=== PATIENT | male | born 1950 | race Caucasian/White ===

== ENCOUNTER 2023-06-17 00:31 | Emergency (ER) | payer MEDICARE, SELFPAY ==
[2023-06-17 00:32] VITALS: BP 169/74; PULSE 81; TEMP 36.8; O2SAT 100; BMI 20.1
--- NOTE | 2023-06-17 00:49 | ED_ITS ---
HPI - Abdominal Pain General Chief Complaint: Abdominal Pain Stated Complaint: OTHER Time Seen by Provider: 06/17/23 00:31 Source: patient Mode of arrival: ambulance History of Present Illness HPI narrative: 73-year-old male presents from [facility] for abdominal pain. He was diagnosed with pancreatic cancer and is scheduled to start chemotherapy. He had been on pain medications but there was apparently an inadvertent issue and he could not get more at the [facility] so he was sent here for pain control. The patient states it will be straightened out in the morning but he just wanted to get something for pain now. The staff at the [facility] did not have access to any more pain medication for him tonight. No new symptoms. Related Data Home Medications ?Medication ?Instructions ?Recorded ?Confirmed fluvoxamine 100 mg tablet 100 mg PO BEDTIME 06/17/23 06/17/23 glipizide 10 mg tablet 10 mg PO DAILY 06/17/23 06/17/23 insulin glargine 100 unit/mL (3 28 unit subcut DAILY 06/17/23 06/17/23 mL) subcutaneous pen (Lantus Solostar U-100 Insulin) methylphenidate HCl 10 mg tablet 10 mg PO QID 06/17/23 06/17/23 oxycodone 10 mg tablet 10 mg PO Q6H 06/17/23 06/17/23 rosuvastatin 20 mg tablet 10 mg PO BEDTIME 06/17/23 06/17/23 trazodone 100 mg tablet 100 mg PO BEDTIME 06/17/23 06/17/23 Allergies Allergy/AdvReac Type Severity Reaction Status Date / Time codeine Allergy Verified 06/17/23 00:37 iodine Allergy Verified 06/17/23 00:37 Penicillins Allergy Verified 06/17/23 00:37 Review of Systems ROS Narrative A ten point review of systems is negative except as noted above. Exam Narrative Exam Narrative: Nurses note and vital signs reviewed and patient is not hypoxic. General: The patient appears well and in no apparent distress. Patient is resting comfortably on cart. Skin: Warm, dry, no pallor noted. There is no rash noted. Head: Normocephalic, atraumatic Eye: Normal conjunctiva, no drainage Ears, Nose, Mouth, and Throat: oral mucosa is moist. Nares patent. Cardiovascular: Regular Rate and Rhythm Respiratory: Patient is in no distress, no accessory muscle use, lungs are clear to auscultation, no wheezing, rales or rhonchi Back: non-tender GI: Minimal tenderness, no distention Musculoskeletal: The patient has no evidence of calf tenderness, no pitting edema, symmetrical pulses noted bilaterally Neurological: A&O, normal speech Psychiatric: Cooperative Constitutional Vital Signs, click to edit/add: Last Vital Signs Temp 98.2 F 06/17/23 00:32 Pulse 81 06/17/23 00:32 Resp 18 06/17/23 00:32 BP 169/74 H 06/17/23 00:32 Pulse Ox 100 06/17/23 00:32 O2 Del Method Room Air 06/17/23 00:32 Course Vital Signs Vital signs: Vital Signs Temperature 98.2 F 06/17/23 00:32 Pulse Rate 81 06/17/23 00:32 Respiratory Rate 18 06/17/23 00:32 Blood Pressure 169/74 H 06/17/23 00:32 Pulse Oximetry 100 06/17/23 00:32 Oxygen Delivery Method Room Air 06/17/23 00:32 Temperature 98.2 F 06/17/23 00:32 Pulse Rate 81 06/17/23 00:32 Respiratory Rate 18 06/17/23 00:32 Blood Pressure 169/74 H 06/17/23 00:32 Pulse Oximetry 100 06/17/23 00:32 Oxygen Delivery Method Room Air 06/17/23 00:32 MDM - Abdominal Pain MDM Narrative Medical decision making narrative: He was given the option of 10 mg of oral oxycodone which is what he had been on or IM morphine and he elects to take the IM morphine. He is able to be discharged back to [facility]. Differential Diagnosis Differential diagnosis: Likely abdominal pain and other (Chronic abdominal pain, pancreatic cancer) Discharge Plan Discharge Stand Alone Forms: Portal Instructions Chief Complaint: Abdominal Pain Clinical Impression: Pancreatic cancer, Abdominal pain Patient Disposition: Home, Self-Care Time of Disposition Decision: 00:48 Condition: Good Mode of Transportation: Private Vehicle Prescriptions / Home Meds: No Action fluvoxamine 100 mg tablet 100 mg PO BEDTIME glipizide 10 mg tablet 10 mg PO DAILY methylphenidate HCl 10 mg tablet 10 mg PO QID rosuvastatin 20 mg tablet 10 mg PO BEDTIME trazodone 100 mg tablet 100 mg PO BEDTIME oxycodone 10 mg tablet 10 mg PO Q6H insulin glargine [Lantus Solostar U-100 Insulin] 100 unit/mL (3 mL) insulin pen 28 unit subcut DAILY Print Language: Slovenian Instructions: Pancreatic Cancer (DC), Acute Abdominal Pain (ED)
[2023-06-17] MEDS: MORPHINE SULFATE 4 MG/ML VIAL 10 MG IM (01:13)
== END 2023-06-17 02:20 | disposition home or self-care (01) ==
PROVIDERS: Emergency Provider Emergency Medicine; Family Provider Family Medicine; PCP Family Medicine
DX: R10.9 Unspecified abdominal pain (principal); C25.9 Malignant neoplasm of pancreas, unspecified; Z79.899 Other long term (current) drug therapy; Z79.4 Long term (current) use of insulin
CPT/HCPCS: 96372; 99284

== ENCOUNTER 2023-07-28 04:16 | Emergency (ER) | payer MEDICARE, SELFPAY ==
[2023-07-28] VITALS (61 sets, daily range): BP systolic 62–119; BP diastolic 40–72; PULSE 91–114; TEMP 36.2; O2SAT 84–99; BMI 22.2
--- NOTE | 2023-07-28 04:13 | CT_ITS ---
The [address] [address] Patient Name: ANUSHA DANIELLE MRN: [id number] date: 1950 Sex: M Assigned Patient Location: ED.MAIN Current Patient Location: Accession/Order Number: [id number] Exam Date: 07/28/2023 06:20 Report Date: 07/28/2023 06:59 At the request of: NARENDRA LIRA Procedure: CT head/brain wo con INDICATION: 73 years old; Male. Found down. TECHNIQUE: CT Head (ax/cor/sag reformats). Ionizing radiation dose reduced via iterative reconstruction/FBP blend and body size kV/mA adjustment. Comparison: None. FINDINGS: POSTOPERATIVE CHANGES: None. BRAIN PARENCHYMA: No intraparenchymal or extra-axial hemorrhage. No mass effect. No midline shift or herniation. There is an old lacunar infarction in the lentiform nucleus on the right and in the thalamus on the left.. Nonspecific patchy low-density in the white matter without mass effect. VENTRICLES/EXTRA-AXIAL SPACES: Normal for patient's age. SINUSES/MASTOIDS: Sinuses are clear although the maxillary sinuses are not completely included in this routine CT of the head. Mastoids and middle ears are clear. MSK: No displaced or depressed calvarial fracture. OTHER: No hyperdense intraluminal thrombus. Vascular calcifications are present. CT/CT head/brain wo con IMPRESSION: 1. No acute intracranial abnormality. No hemorrhage or mass effect. 2. Old lacunar infarctions and nonspecific white matter changes. If there is concern for infarction, then MRI including diffusion imaging would be more sensitive. 3. Vascular calcifications. Electronically authenticated by: ANUSHA POSADA Date: 07/28/2023 06:59
--- NOTE | 2023-07-28 04:13 | ECG_ITS ---
The [facility] Test Date: 2023-07-28 Pat Name: ANUSHA DANIELLE Department: Room: - Gender: Male Oracle Dba: : 1950 Requested By: Order Number: [id number] Reading MD: JACKI LERNER Measurements Intervals [place] Rate: 111 P: 97 NE: 138 QRS: -13 QRSD: 98 T: 79 QT: 322 QTc: 387 Interpretive Statements 1120 Sinus tachycardia 2440 Incomplete right bundle branch block Inferolateral ST depression, can't exclude myocardial ischemia 9150 abnormal ECG No previous ECG available for comparison Electronically Signed On 07-28-2023 21:53:08 EDT by JACKI LERNER
--- NOTE | 2023-07-28 04:13 | CT_ITS ---
[address] [address] Patient Name: ANUSHA DANIELLE MRN: [id number] date: 1950 Sex: M Assigned Patient Location: ER Current Patient Location: ER Accession/Order Number: [id number] Exam Date: 07/28/2023 06:20 Report Date: 07/28/2023 06:59 At the request of: NARENDRA LIRA Procedure: CT cervical spine wo con EXAMINATION: CT cervical spine wo con HISTORY: fall COMPARISON: No relevant comparison available. TECHNIQUE: Axial, Coronal, and Sagittal images were created without IV contrast. Dose reduction techniques were achieved by using automated exposure control and/or adjustment of mA and/or kV according to patient size and/or use of iterative reconstruction technique. FINDINGS: VERTEBRAL BODIES: No fracture, spondylolisthesis, bone lesion. FACET JOINTS: Multilevel moderate degenerative facet arthropathy resulting in bone encroachment on the neural foramen. No disruption or abnormal widening. DISCS: Mild narrowing C4 on 5. Moderate-marked narrowing C5-C6. Multilevel mild/moderate disc bulging and uncovertebral joint spurring resulting in foraminal stenosis. Suspect moderate-marked central canal narrowing C5-C6. CENTRAL CANAL: No evidence of hemorrhage. PARASPINAL AREA: No visible mass. CT/CT cervical spine wo con IMPRESSION: 1. No appreciable acute abnormality. 2. Multilevel degenerative changes. Electronically authenticated by: MARILU MOBLEY Date: 07/28/2023 06:59
[2023-07-28 04:22] LABS: Glucometer 136 mg/dL (74-106)
--- NOTE | 2023-07-28 04:23 | ED.SOB1 ---
HPI - SOB/Dyspnea General Chief Complaint: Shortness of Breath/Dyspnea Stated Complaint: chest pain Time Seen by Provider: 07/28/23 04:23 Source: caregiver Source comment: diane jones Mode of arrival: ambulance Limitations: no limitations History of Present Illness HPI Narrative: retirement patient with past history of pancreatic CA. Found on the floor of the retirement. Arrives to the ED very pale complaining of feeling short of breath. Also complains of neck pain. Anxious stating he can't breathe MD elicited complaint: shortness of breath Related Data Home Medications ?Medication ?Instructions ?Recorded ?Confirmed fluvoxamine 100 mg tablet 100 mg PO BEDTIME 06/17/23 07/28/23 glipizide 10 mg tablet 10 mg PO DAILY 06/17/23 07/28/23 insulin glargine 100 unit/mL (3 28 unit subcut DAILY 06/17/23 07/28/23 mL) subcutaneous pen (Lantus Solostar U-100 Insulin) methylphenidate HCl 10 mg tablet 10 mg PO BID 06/17/23 07/28/23 trazodone 100 mg tablet 100 mg PO BEDTIME 06/17/23 07/28/23 GI COCKTAIL 60 ml PO TID 07/28/23 07/28/23 atorvastatin 40 mg tablet 40 mg PO QPM 07/28/23 07/28/23 furosemide 20 mg tablet 20 mg PO DAILY 07/28/23 07/28/23 hydromorphone 2 mg tablet 2 mg PO Q8H 07/28/23 07/28/23 (Dilaudid) insulin aspart U-100 100 unit/mL 1 sliding scale dose subcut 07/28/23 07/28/23 (3 mL) subcutaneous pen (Novolog USEASDIRECTD FlexPen U-100 Insulin aspart) insulin glargine 100 unit/mL 10 unit subcut QDAY 07/28/23 07/28/23 subcutaneous solution (Lantus U-100 Insulin) morphine 15 mg tablet,extended 15 mg PO Q12H 07/28/23 07/28/23 release ondansetron 4 mg disintegrating 4 mg PO Q6H PRN nausea and vomiting 07/28/23 07/28/23 tablet pantoprazole 40 mg granules 40 mg PO QDAY 07/28/23 07/28/23 delayed-release for susp in packet (Protonix) sennosides 8.6 mg tablet (Olga-lobo) 8.6 mg PO BID 07/28/23 07/28/23 Allergies Allergy/AdvReac Type Severity Reaction Status Date / Time codeine Allergy Verified 07/28/23 04:18 iodine Allergy Verified 07/28/23 04:18 Penicillins Allergy Verified 07/28/23 04:18 Review of Systems ROS Status of ROS 10 or more systems reviewed and unremarkable except as noted in history and below Exam Constitutional Vital Signs, click to edit/add: Last Vital Signs Temp 97.1 F L 07/28/23 04:10 Pulse 111 H 07/28/23 05:37 Resp 12 07/28/23 05:37 BP 102/70 07/28/23 05:37 Pulse Ox 97 07/28/23 05:37 O2 Del Method Nonrebreather 07/28/23 05:37 O2 Flow Rate 5 07/28/23 04:16 Common normals: oriented x3 and alert General appearance: diaphoretic and other (pale) HENMT Common normals: normocephalic and head/scalp atraumatic Eye Common normals: EOMs intact bilaterally and conjunctivae normal Respiratory Common normals: normal respiratory effort, no retractions, no use of accessory muscles and clear to auscultation bilaterally Cardio Common normals: S1 normal heart sound and S2 normal heart sound Rate: tachycardic GI Common normals: Normal to inspection, nondistended, normoactive bowel sounds present, soft to palpation and non-tender Extremity Common normals: normal to inspection and full ROM Neuro Common normals: oriented x3, CN's II-XII intact bilaterally, moves all extremities, no focal motor deficits and no sensory deficits noted Psych Mood and affect: anxious Course Vital Signs Vital signs: Vital Signs Temperature 97.1 F L 07/28/23 04:10 Pulse Rate 112 H 07/28/23 04:10 Respiratory Rate 18 07/28/23 04:10 Blood Pressure 112/58 07/28/23 04:10 Pulse Oximetry 99 07/28/23 04:10 Oxygen Delivery Method Nonrebreather 07/28/23 04:10 Oxygen Delivery Flow Rate 15 07/28/23 04:10 Temperature 97.1 F L 07/28/23 04:10 Pulse Rate 111 H 07/28/23 05:37 Respiratory Rate 12 05/12/24 05:37 Blood Pressure 102/70 07/28/23 05:37 Pulse Oximetry 97 07/28/23 05:37 Oxygen Delivery Method Nonrebreather 07/28/23 05:37 Oxygen Delivery Flow Rate 5 07/28/23 04:16 MDM - SOB/Dyspnea MDM Narrative Medical decision making narrative: NHP with known history of pancreatic Cancer. Found on the floor of the home. Brought to the ER by Squad. complaining of shortness of breath. He was panicking complaining he could not breath. His color very pale. He improved with NRB mask. Labs demonstrated anemia with Hgb 8.5. D-dimer elevated. He also complained of neck pain. Has a history of neck pain but because he was found on the floor . CT C-spine, CT brain ordered. CTA chest ordered after elevated d-dimer. Patient found to have lactic acidosis and also hypotensive and IV hydration ordered. Vanco and Clindamycin ordered for [employer] cov. Patient has PCN allergy. Care transferred to Dr barrientos at change of shift pending results of diagnostic studies and remaining labs Lab Data Labs: Lab Results 07/28/23 07/28/23 Range/Units 04:13 04:15 WBC 13.6 H (4.0-11.0) 10^3/uL RBC 3.04 L (4.70-6.10) 10^6/uL Hgb 8.5 L (14.0-18.0) g/dL Hct 27.8 L (42.0-54.0) % MCV 91.4 (80.0-94.0) fL MCH 28.0 (25.9-34.0) pg MCHC 30.6 (29.9-35.2) g/dL RDW 13.5 (11.0-15.0) % Plt Count 262 (150-450) 10^3/uL MPV 9.5 (9.5-13.5) fL Seg Neuts % (Manual) 51.0 Band Neutrophils % 4.0 (0-5) % Lymphocytes % (Manual) 39.0 (20.5-60.0) % Atypical Lymphs % (Man) 2.0 % Monocytes % (Manual) 1.0 L (1.7-12.0) % Eosinophils % (Manual) 3.0 (0.9-7.0) % Basophils % (Manual) 0.0 L (0.2-2.0) % Neutrophils # (Manual) 6.93 H (1.4-6.5) 10^3/uL Band Neutrophils # 0.5 H (0.0-0.3) 10^3/uL Lymphocytes # (Manual) 5.30 H (1.20-3.80) 10^3/uL Abs Atypical Lymphs Man 0.27 Monocytes # (Manual) 0.13 L (0.30-0.80) 10^3/uL Eosinophils # (Manual) 0.40 (0.00-0.70) 10^3/uL Basophils # (Manual) 0.00 (0.00-0.10) 10^3/uL D-Dimer 18.28 H* (<=0.59) mg/L FEU Sodium 142 (136-145) mmol/L Potassium 3.7 (3.5-5.1) mmol/L Chloride 104 (98-107) mmol/L Carbon Dioxide 26.2 (21.0-32.0) mmol/L Anion Gap 15.5 BUN 27.0 H (7.0-18.0) mg/dL Creatinine 1.33 H (0.70-1.30) mg/dL Est GFR ( Amer) >60 (>=60) Est GFR (Non-Af Amer) 53 L (>=60) BUN/Creatinine Ratio 20.3 Glucose 221 H (74-106) mg/dL Lactate 8.8 H* (0.4-2.0) mmol/L Calcium 8.6 (8.5-10.1) mg/dL Total Bilirubin 0.5 (0.2-1.0) mg/dL AST 32 (15-37) U/L ALT 26 (16-63) U/L Alkaline Phosphatase 154 H (46-116) U/L Troponin I High Sens 52.2 (4.0-76.1) pg/mL NT-Pro-B Natriuret Pep 487.0 (<=900.0) pg/mL Total Protein 5.6 L (6.4-8.2) g/dL Albumin 2.2 L (3.4-5.0) g/dL Globulin 3.4 g/dL Albumin/Globulin Ratio 0.6 Procalcitonin 0.17 (0.00-0.50) ng/mL POC Glucose 136 H (74-106) mg/dL Discharge Plan Discharge Patient Disposition: Still a Patient
[2023-07-28 04:32] LABS: Hematocrit 27.8 % (42.0-54.0); Hemoglobin 8.5 g/dL (14.0-18.0); Mean Corpuscular HGB Conc 30.6 g/dL (29.9-35.2); Mean Corpuscular Volume 91.4 fL (80.0-94.0); Mean Platelet Volume 9.5 fL (9.5-13.5); Platelet Count 262 10^3/uL (150-450); Red Blood Count 3.04 10^6/uL (4.70-6.10); Red Cell Distribution Width 13.5 % (11.0-15.0); White Blood Count 13.6 10^3/uL (4.0-11.0)
--- NOTE | 2023-07-28 04:40 | PC.NURSE ---
Pt arrived via EMS after being found on floor at [facility]. He was having chest pain and SOB. EMS phoned report stating patient was on 6L O2 per NC and was only at 88%, and was hypotensive. When he arrived, he was anxious, yelling out that he could not breathe, he was diaphoretic and skin was pale and greying. RT was in the room and switched patient over to nonrebreather mask which brought patient up to 95% and he was able to calm his breathing and he felt much better. He was able to have a conversation at this point, states that he gets chemo once every other week through his port, it has been making him feel increasingly SOB, but tonight is the worst it has been. he c/o neck pain that he says is not from his fall, it has been ongoing from arthritis. He states that yesterday at the oncologist office his platelets were low and they put a platelet patch on him which is when his SOB increased He has 4+ pitting edema of BLEs, he states this is not new and is better tonight than normal
[2023-07-28] MEDS: 0.9 % SODIUM CHLORIDE 1,000 ML 999 ML IV ×2 (04:46→05:26)
[2023-07-28 05:00] LABS: Lactate/Lactic Acid 8.8 mmol/L (0.4-2.0)
[2023-07-28 05:04] LABS: Alanine Aminotransferase 26 U/L (16-63); Albumin Globulin Ratio 0.6; Albumin Level 2.2 g/dL (3.4-5.0); Alkaline Phosphatase 154 U/L (46-116); Anion Gap 15.5; Aspartate Amino Transferase 32 U/L (15-37); BUN Creatinine Ratio 20.3; Bilirubin Total 0.5 mg/dL (0.2-1.0); Calcium 8.6 mg/dL (8.5-10.1); Carbon Dioxide 26.2 mmol/L (21.0-32.0); Chloride 104 mmol/L (98-107); Estimated GFR (African America >60 (>=60); Estimated GFR (Non-African Ame 53 (>=60); Globulin 3.4 g/dL; Glucose 221 mg/dL (74-106); Potassium 3.7 mmol/L (3.5-5.1); Sodium 142 mmol/L (136-145); Total Protein 5.6 g/dL (6.4-8.2); Troponin I High Sensitivity 52.2 pg/mL (4.0-76.1)
[2023-07-28 05:13] LABS: D Dimer 18.28 mg/L FEU (<=0.59)
--- NOTE | 2023-07-28 05:13 | CT_ITS ---
[address] [address] Patient Name: ANUSHA DANIELLE MRN: [id number] date: 1950 Sex: M Assigned Patient Location: ED.MAIN Current Patient Location: ED.MAIN Accession/Order Number: [id number] Exam Date: 07/28/2023 05:29 Report Date: 07/28/2023 07:10 At the request of: NARENDRA LIRA Procedure: CT angio chest EXAMINATION: CT angio chest HISTORY: short of breath , trauma, fall COMPARISON: No relevant comparison available. TECHNIQUE: Multi-planar CT images were created with IV contrast. Axial, Coronal, and Sagittal images. Dose reduction techniques were achieved by using automated exposure control and/or adjustment of mA and/or kV according to patient size and/or use of iterative reconstruction technique. 3-D reconstruction was performed on a separate workstation. FINDINGS: VASCULATURE: Large pulmonary embolism burden bilaterally with nonocclusive thrombus in main pulmonary arteries extending into all lobar arteries bilaterally. LUNGS: Mild atelectasis versus infiltrates within posterior lung bases. A few scattered areas of mild opacity; pulmonary contusion versus nodules versus infiltrates. PLEURA: No mass, effusion, or pneumothorax. LEAH: No mass or adenopathy. MEDIASTINUM: No mass or adenopathy. CARDIAC: Moderate leftward shift of interventricular septum. No pericardial effusion. Mild atherosclerotic coronary artery disease. AORTA: No aneurysm or dissection. CHEST WALL: No mass or axillary adenopathy. Left chest wall Port-A-Cath. BONES: No bone lesion or fracture. LIMITED ABDOMEN: No suspicious findings. Limited images of the upper abdomen. OTHER: Negative. CT/CT angio chest IMPRESSION: 1. Large, nonocclusive bilateral pulmonary embolism burden with moderate heart strain. 2. Multifocal mild pulmonary atelectasis versus infiltrates versus contusions. No convincing infarctions. Findings discussed with Dr. Washington via telephone at 7:04 AM. Electronically authenticated by: MARILU MOBLEY Date: 07/28/2023 07:10
[2023-07-28] MEDS: METHYLPREDNISOLONE SOD SUCC PF 125 MG/2 ML VIAL IVP (05:27)
[2023-07-28] MEDS: DIPHENHYDRAMINE HCL 50 MG/ML (1ML) VIAL IV (05:27)
[2023-07-28 05:32] LABS: Atypical Lymphocytes Abs Man 0.27; Band Neutrophils Absolute 0.5 10^3/uL (0.0-0.3); Monocytes Absolute Manual 0.13 10^3/uL (0.30-0.80); Segmented Neut Absolute Manual 6.93 10^3/uL (1.4-6.5)
[2023-07-28 05:51] LABS: PROCALCITONIN 0.17 ng/mL (0.00-0.50)
[2023-07-28] MEDS: CLINDAMYCIN PHOSPHATE/D5W 900 MG/50 ML PIGGYBACK 100 MG IV (06:53)
[2023-07-28] MEDS: VANCOMYCIN HCL 1,000 MG in 0.9 % SODIUM CHLORIDE 250 ML 250 MG IV (07:21)
[2023-07-28] MEDS: HEPARIN SODIUM (PORCINE) 5,000 UNIT/ML VIAL 3750 UNIT IV (07:40)
[2023-07-28] MEDS: HEPARIN SODIUM,PORCINE/D5W 25,000 UNIT/500 ML IV.SOLN 25 UNIT IV (07:42)
[2023-07-28 08:27] LABS: INR 1.17; Prothrombin Time 12.2 sec (9.0-11.6)
[2023-07-28 08:30] LABS: Partial Thromboplastin Time 112.9 sec (22.3-36.2)
--- NOTE | 2023-07-28 08:31 | ED.SOB1 ---
HPI - SOB/Dyspnea General Chief Complaint: Shortness of Breath/Dyspnea Stated Complaint: chest pain Time Seen by Provider: 07/28/23 04:23 Source: caregiver Source comment: diane jones Mode of arrival: ambulance Limitations: no limitations History of Present Illness HPI Narrative: The patient was initially seen by Dr. Aguilar and signed out to me after discussing the case with him thoroughly. Please see his full history and physical exam. Related Data Home Medications ?Medication ?Instructions ?Recorded ?Confirmed fluvoxamine 100 mg tablet 100 mg PO BEDTIME 06/17/23 07/28/23 glipizide 10 mg tablet 10 mg PO DAILY 06/17/23 07/28/23 insulin glargine 100 unit/mL (3 28 unit subcut DAILY 06/17/23 07/28/23 mL) subcutaneous pen (Lantus Solostar U-100 Insulin) methylphenidate HCl 10 mg tablet 10 mg PO BID 06/17/23 07/28/23 trazodone 100 mg tablet 100 mg PO BEDTIME 06/17/23 07/28/23 GI COCKTAIL 60 ml PO TID 07/28/23 07/28/23 atorvastatin 40 mg tablet 40 mg PO QPM 07/28/23 07/28/23 furosemide 20 mg tablet 20 mg PO DAILY 07/28/23 07/28/23 hydromorphone 2 mg tablet 2 mg PO Q8H 07/28/23 07/28/23 (Dilaudid) insulin aspart U-100 100 unit/mL 1 sliding scale dose subcut 07/28/23 07/28/23 (3 mL) subcutaneous pen (Novolog USEASDIRECTD FlexPen U-100 Insulin aspart) insulin glargine 100 unit/mL 10 unit subcut QDAY 07/28/23 07/28/23 subcutaneous solution (Lantus U-100 Insulin) morphine 15 mg tablet,extended 15 mg PO Q12H 07/28/23 07/28/23 release ondansetron 4 mg disintegrating 4 mg PO Q6H PRN nausea and vomiting 07/28/23 07/28/23 tablet pantoprazole 40 mg granules 40 mg PO QDAY 07/28/23 07/28/23 delayed-release for susp in packet (Protonix) sennosides 8.6 mg tablet (Olga-lobo) 8.6 mg PO BID 07/28/23 07/28/23 Allergies Allergy/AdvReac Type Severity Reaction Status Date / Time codeine Allergy Verified 07/28/23 04:18 iodine Allergy Verified 07/28/23 04:18 Penicillins Allergy Verified 07/28/23 04:18 Exam Constitutional Vital Signs, click to edit/add: Last Vital Signs Temp 97.1 F L 07/28/23 04:10 Pulse 96 H 07/28/23 08:00 Resp 13 07/28/23 08:00 BP 80/40 L 07/28/23 08:01 Pulse Ox 94 L 07/28/23 08:00 O2 Del Method Nonrebreather 07/28/23 06:56 O2 Flow Rate 4 07/28/23 07:47 Course Vital Signs Vital signs: Vital Signs Temperature 97.1 F L 07/28/23 04:10 Pulse Rate 112 H 07/28/23 04:10 Respiratory Rate 18 07/28/23 04:10 Blood Pressure 112/58 07/28/23 04:10 Pulse Oximetry 99 07/28/23 04:10 Oxygen Delivery Method Nonrebreather 07/28/23 04:10 Oxygen Delivery Flow Rate 15 07/28/23 04:10 Temperature 97.1 F L 07/28/23 04:10 Pulse Rate 96 H 07/28/23 08:00 Respiratory Rate 13 07/28/23 08:00 Blood Pressure 80/40 L 07/28/23 08:01 Pulse Oximetry 94 L 07/28/23 08:00 Oxygen Delivery Method Nonrebreather 07/28/23 06:56 Oxygen Delivery Flow Rate 4 07/28/23 07:47 MDM - SOB/Dyspnea MDM Narrative Medical decision making narrative: CTA shows bilateral nonocclusive pulmonary emboli with heart strain. Findings are discussed with the patient and his and they are requesting transfer to [facility]. I have spoken to Dr. Daniel bustillos who accepts the patient and the patient will be transported by air ambulance. He has been started on a heparin drip and was also placed on Levophed because of low blood pressure. The seriousness of the condition was discussed thoroughly with the patient and his . As of now he is still a full code. Differential Diagnosis Differential diagnosis: Likely other (PE, heart strain, intracranial hemorrhage, pneumothorax) Medical Records Attestation: I reviewed the patient's medical records. Lab Data Attestation: I reviewed the patient's lab results. Labs: Lab Results 07/28/23 07/28/23 07/28/23 Range/Units 04:13 04:15 08:00 WBC 13.6 H (4.0-11.0) 10^3/uL RBC 3.04 L (4.70-6.10) 10^6/uL Hgb 8.5 L (14.0-18.0) g/dL Hct 27.8 L (42.0-54.0) % MCV 91.4 (80.0-94.0) fL MCH 28.0 (25.9-34.0) pg MCHC 30.6 (29.9-35.2) g/dL RDW 13.5 (11.0-15.0) % Plt Count 262 (150-450) 10^3/uL MPV 9.5 (9.5-13.5) fL Seg Neuts % (Manual) 51.0 Band Neutrophils % 4.0 (0-5) % Lymphocytes % (Manual) 39.0 (20.5-60.0) % Atypical Lymphs % (Man) 2.0 % Monocytes % (Manual) 1.0 L (1.7-12.0) % Eosinophils % (Manual) 3.0 (0.9-7.0) % Basophils % (Manual) 0.0 L (0.2-2.0) % Neutrophils # (Manual) 6.93 H (1.4-6.5) 10^3/uL Band Neutrophils # 0.5 H (0.0-0.3) 10^3/uL Lymphocytes # (Manual) 5.30 H (1.20-3.80) 10^3/uL Abs Atypical Lymphs Man 0.27 Monocytes # (Manual) 0.13 L (0.30-0.80) 10^3/uL Eosinophils # (Manual) 0.40 (0.00-0.70) 10^3/uL Basophils # (Manual) 0.00 (0.00-0.10) 10^3/uL PT 12.2 H (9.0-11.6) sec INR 1.17 APTT 112.9 H* (22.3-36.2) sec D-Dimer 18.28 H* (<=0.59) mg/L FEU Sodium 142 (136-145) mmol/L Potassium 3.7 (3.5-5.1) mmol/L Chloride 104 (98-107) mmol/L Carbon Dioxide 26.2 (21.0-32.0) mmol/L Anion Gap 15.5 BUN 27.0 H (7.0-18.0) mg/dL Creatinine 1.33 H (0.70-1.30) mg/dL Est GFR ( Amer) >60 (>=60) Est GFR (Non-Af Amer) 53 L (>=60) BUN/Creatinine Ratio 20.3 Glucose 221 H (74-106) mg/dL Lactate 8.8 H* 2.0 (0.4-2.0) mmol/L Calcium 8.6 (8.5-10.1) mg/dL Total Bilirubin 0.5 (0.2-1.0) mg/dL AST 32 (15-37) U/L ALT 26 (16-63) U/L Alkaline Phosphatase 154 H (46-116) U/L Troponin I High Sens 52.2 (4.0-76.1) pg/mL NT-Pro-B Natriuret Pep 487.0 (<=900.0) pg/mL Total Protein 5.6 L (6.4-8.2) g/dL Albumin 2.2 L (3.4-5.0) g/dL Globulin 3.4 g/dL Albumin/Globulin Ratio 0.6 Procalcitonin 0.17 (0.00-0.50) ng/mL POC Glucose 136 H (74-106) mg/dL Imaging Data CT scan - chest: Radiologist's impression: ITS Impressions Cervical Spine CT 07/28/23 04:13 IMPRESSION: 1. No appreciable acute abnormality. 2. Multilevel degenerative changes. Electronically authenticated by: MARILU MOBLEY Date: 07/28/2023 06:[address] 07/28/23 04:13 IMPRESSION: 1. No acute intracranial abnormality. No hemorrhage or mass effect. 2. Old lacunar infarctions and nonspecific white matter changes. If there is concern for infarction, then MRI including diffusion imaging would be more sensitive. 3. Vascular calcifications. Electronically authenticated by: ANUSHA POSADA Date: 07/28/2023 06:59 Chest CTA 07/28/23 05:13 IMPRESSION: 1. Large, nonocclusive bilateral pulmonary embolism burden with moderate heart strain. 2. Multifocal mild pulmonary atelectasis versus infiltrates versus contusions. No convincing infarctions. Findings discussed with Dr. Washington via telephone at 7:04 AM. Electronically authenticated by: MARILU MOBLEY Date: 07/28/2023 07:10 ECG Data Attestation: I personally reviewed and interpreted this ECG as follows: (EKG on my interpretation shows sinus tachycardia with a heart rate of 111.) Critical Care Time Critical Care Time Critical Care Time: Yes Total Critical Care Time: 120 Attestation: Due to the high probability of sudden and clinically significant deterioration in the patient's condition he/she required the highest level of my preparedness to intervene urgently I provided critical care time including documentation time, medication orders and management, reevaluation, vital sign assessment, ordering and reviewing of lab tests, ordering and reviewing of x-ray studies, and admission orders. Aggregate critical care time is 120 minutes including only time during which I was engaged in work directly related to his/her care and did not include time spent treating other patients simultaneously. Discharge Plan Discharge Chief Complaint: Shortness of Breath/Dyspnea Clinical Impression: Hypotension, Pulmonary embolism Patient Disposition: [facility] Time of Disposition Decision: 08:30 Discharge location: [facility] Condition: Critical Mode of Transportation: [employer]
[2023-07-28] MEDS: NOREPINEPHRINE BITARTRATE/D5W 4 MG/250 ML PREMIX 30 MG IV (08:33)
== END 2023-07-28 09:45 | disposition short-term general hospital (02) ==
PROVIDERS: Internal Medicine; Emergency Provider Emergency Medicine; Family Provider Family Medicine; PCP Family Medicine
DX: I26.99 Other pulmonary embolism without acute cor pulmonale (principal); I95.9 Hypotension, unspecified; R06.02 Shortness of breath; R07.9 Chest pain, unspecified; Z79.84 Long term (current) use of oral hypoglycemic drugs; Z79.899 Other long term (current) drug therapy; Z79.4 Long term (current) use of insulin; M54.2 Cervicalgia; C25.9 Malignant neoplasm of pancreas, unspecified; I51.9 Heart disease, unspecified
CPT/HCPCS: 36415; 36591; 70450; 71275; 72125; 80053; 82805; 83605; 83880; 84145; 84484; 85007; 85027; 85378; 85610; 85730; 87040; 93005; 96361; 96365; 96366; 96368; 96375; 99285; J2919; J3370; Q9967

== ENCOUNTER 2023-08-21 19:36 | Emergency (ER) | payer MEDICARE, SELFPAY ==
[2023-08-21 19:39] VITALS: BP 120/55; PULSE 84; TEMP 36.6; O2SAT 100; BMI 22.8
--- NOTE | 2023-08-21 19:48 | CT_ITS ---
The [address] [address] Patient Name: ANUSHA DANIELLE MRN: [id number] date: 1950 Sex: M Assigned Patient Location: ER Current Patient Location: ER Accession/Order Number: [id number] Exam Date: 08/21/2023 21:20 Report Date: 08/21/2023 22:45 At the request of: JAMIL MARKER Procedure: CT angio chest PROCEDURE: CT angio chest, CT angio abdomen pelvis CLINICAL INDICATION: 73 years Male Upper abd pain, hx PE and pancreatic ca COMPARISONS: Chest CT angiogram dated 07/28/2023. TECHNIQUE: CT angiogram of the chest, abdomen and pelvis was performed following intravenous administration of 100 mL of Omnipaque 350. Additional volume rendered images were also obtained. Coronal and sagittal reformations were created. Individualized dose optimization technique was used for the procedure performed. FINDINGS: Chest There has been some decrease in the burden of bilateral pulmonary emboli compared to the previous exam. There is no evidence of right heart strain. There is no aortic aneurysm or dissection. Visualized thyroid gland appears unremarkable. Trachea and mainstem bronchi are patent. There is no hilar, mediastinal or axillary adenopathy. Mild biapical scarring is again noted. A few noncalcified lung nodules and small hazy opacities within both lungs are also again seen. There is no pleural or pericardial effusion. There are mild multilevel arthritic changes of the thoracic spine. Abdomen and pelvis There are multiple low-attenuation liver lesions measuring up to 2.3 cm within inferior right hepatic lobe. Biliary stent and pneumobilia are also identified. Pancreas is markedly atrophic. There is a 2.9 x 2.5 cm pancreatic head mass. There is mild nodular thickening of the right adrenal gland. Gallbladder is surgically absent. Spleen, left adrenal gland and kidneys are normal. Bowel loops are normal in course and caliber, there is no obstruction or free air. Appendix is normal. There is no ascites or adenopathy. There is severe aortoiliac atherosclerotic disease. Lumbar spine and pelvic bones appear unremarkable. CT/CT angio chest IMPRESSION: 1. Some decrease in burden of bilateral pulmonary emboli. No evidence of right heart strain. 2. Stable small hazy opacities within both lungs concerning for pulmonary infarcts. 3. No acute abnormality within the upper abdomen and pelvis. 4. Pancreatic head mass with hepatic metastases as detailed above. Electronically authenticated by: NANCY COLEMAN Date: 08/21/2023 22:45
--- NOTE | 2023-08-21 19:48 | CT_ITS ---
The [address] [address] Patient Name: ANUSHA DANIELLE MRN: [id number] date: 1950 Sex: M Assigned Patient Location: ER Current Patient Location: ER Accession/Order Number: [id number] Exam Date: 08/21/2023 21:20 Report Date: 08/21/2023 22:45 At the request of: JAMIL MARKER Procedure: CT angio abdomen pelvis PROCEDURE: CT angio chest, CT angio abdomen pelvis CLINICAL INDICATION: 73 years Male Upper abd pain, hx PE and pancreatic ca COMPARISONS: Chest CT angiogram dated 07/28/2023. TECHNIQUE: CT angiogram of the chest, abdomen and pelvis was performed following intravenous administration of 100 mL of Omnipaque 350. Additional volume rendered images were also obtained. Coronal and sagittal reformations were created. Individualized dose optimization technique was used for the procedure performed. FINDINGS: Chest There has been some decrease in the burden of bilateral pulmonary emboli compared to the previous exam. There is no evidence of right heart strain. There is no aortic aneurysm or dissection. Visualized thyroid gland appears unremarkable. Trachea and mainstem bronchi are patent. There is no hilar, mediastinal or axillary adenopathy. Mild biapical scarring is again noted. A few noncalcified lung nodules and small hazy opacities within both lungs are also again seen. There is no pleural or pericardial effusion. There are mild multilevel arthritic changes of the thoracic spine. Abdomen and pelvis There are multiple low-attenuation liver lesions measuring up to 2.3 cm within inferior right hepatic lobe. Biliary stent and pneumobilia are also identified. Pancreas is markedly atrophic. There is a 2.9 x 2.5 cm pancreatic head mass. There is mild nodular thickening of the right adrenal gland. Gallbladder is surgically absent. Spleen, left adrenal gland and kidneys are normal. Bowel loops are normal in course and caliber, there is no obstruction or free air. Appendix is normal. There is no ascites or adenopathy. There is severe aortoiliac atherosclerotic disease. Lumbar spine and pelvic bones appear unremarkable. CT/CT angio abdomen pelvis IMPRESSION: 1. Some decrease in burden of bilateral pulmonary emboli. No evidence of right heart strain. 2. Stable small hazy opacities within both lungs concerning for pulmonary infarcts. 3. No acute abnormality within the upper abdomen and pelvis. 4. Pancreatic head mass with hepatic metastases as detailed above. Electronically authenticated by: NANCY COLEMAN Date: 08/21/2023 22:45
--- NOTE | 2023-08-21 19:51 | ED.ABDPAIN1 ---
HPI - Abdominal Pain General Chief Complaint: Abdominal Pain Stated Complaint: Chest Pain Time Seen by Provider: 08/21/23 19:37 Source: patient Mode of arrival: ambulance Limitations: no limitations History of Present Illness HPI narrative: This 73-year-old man who is currently undergoing chemotherapy for pancreatic cancer and was transferred from this facility on July 28, 2023 for bilateral pulmonary embolisms with heart strain who was transferred to [facility] and underwent thrombectomy for the PEs presents for evaluation of upper abdominal pain. The patient is on MS Contin and Dilaudid for pain. He states that earlier today he started having some upper abdominal pain that has persisted. He requested to come to the emergency department for evaluation. He denies any pain in his chest. He denies any shortness of breath. He has not had any nausea or vomiting. He denies any diarrhea but did have diarrhea several days ago. He has not had a fever. He denies any black tarry stool or blood in his urine. He is currently on Eliquis. Related Data Home Medications ?Medication ?Instructions ?Recorded ?Confirmed fluvoxamine 100 mg tablet 100 mg PO BEDTIME 06/17/23 07/28/23 glipizide 10 mg tablet 10 mg PO DAILY 06/17/23 07/28/23 insulin glargine 100 unit/mL (3 28 unit subcut DAILY 06/17/23 07/28/23 mL) subcutaneous pen (Lantus Solostar U-100 Insulin) methylphenidate HCl 10 mg tablet 10 mg PO BID 06/17/23 07/28/23 trazodone 100 mg tablet 100 mg PO BEDTIME 06/17/23 07/28/23 GI COCKTAIL 60 ml PO TID 07/28/23 07/28/23 atorvastatin 40 mg tablet 40 mg PO QPM 07/28/23 07/28/23 furosemide 20 mg tablet 20 mg PO DAILY 07/28/23 07/28/23 hydromorphone 2 mg tablet 2 mg PO Q8H 07/28/23 07/28/23 (Dilaudid) insulin aspart U-100 100 unit/mL 1 sliding scale dose subcut 07/28/23 07/28/23 (3 mL) subcutaneous pen (Novolog USEASDIRECTD FlexPen U-100 Insulin aspart) insulin glargine 100 unit/mL 10 unit subcut QDAY 07/28/23 07/28/23 subcutaneous solution (Lantus U-100 Insulin) morphine 15 mg tablet,extended 15 mg PO Q12H 07/28/23 07/28/23 release ondansetron 4 mg disintegrating 4 mg PO Q6H PRN nausea and vomiting 07/28/23 07/28/23 tablet pantoprazole 40 mg granules 40 mg PO QDAY 07/28/23 07/28/23 delayed-release for susp in packet (Protonix) sennosides 8.6 mg tablet (Olga-lobo) 8.6 mg PO BID 07/28/23 07/28/23 Allergies Allergy/AdvReac Type Severity Reaction Status Date / Time codeine Allergy Verified 08/21/23 19:44 iodine Allergy Verified 08/21/23 19:44 Penicillins Allergy Verified 08/21/23 19:44 Review of Systems ROS Status of ROS 10 or more systems reviewed and unremarkable except as noted in history and below Exam Narrative Exam Narrative: Vital signs and Nursing Notes reviewed: Patient is afebrile with a normal pulse, normal blood pressure, he is not hypoxic with pulse ox of 100% on room air General: Awake, alert, oriented, pale elderly male, no respiratory distress HEENT: Normocephalic atraumatic, mucous membranes are pale and dry, eyes are clear, conjunctival pallor is noted, vision is grossly intact, posterior pharynx is normal in appearance. Neck: Supple, no meningeal signs, no anterior or posterior cervical lymphadenopathy Chest: Lungs are clear to auscultation with good air entry, there is no wheezing rhonchi or rales appreciated no accessory muscle use, patient is speaking in complete sentences-no chest wall tenderness to palpation CVS: Regular rate and rhythm S1-S2, no murmurs rubs or gallops, pulses are brisk and equal bilaterally ABD: Soft, nondistended, nontender, no rebound guarding or rigidity, bowel sounds are normal, no pulsatile masses appreciated Extremities: Moving all extremities, no lower extremity tenderness, 2-3+ lower extremity swelling is noted bilaterally Skin: Pale with scattered areas of ecchymosis due to blood draws, no skin rash, petechiae or purpura noted Neuro: No focal deficits Constitutional Vital Signs, click to edit/add: Last Vital Signs Temp 97.9 F 08/21/23 19:39 Pulse 77 08/21/23 22:20 Resp 15 08/21/23 22:20 BP 95/52 08/21/23 22:20 Pulse Ox 99 08/21/23 22:20 O2 Del Method Room Air 08/21/23 22:20 Course Vital Signs Vital signs: Vital Signs Temperature 97.9 F 08/21/23 19:39 Pulse Rate 84 08/21/23 19:39 Respiratory Rate 20 08/21/23 19:39 Blood Pressure 120/55 08/21/23 19:39 Pulse Oximetry 100 08/21/23 19:39 Temperature 97.9 F 08/21/23 19:39 Pulse Rate 77 08/21/23 22:20 Respiratory Rate 15 08/21/23 22:20 Blood Pressure 95/52 08/21/23 22:20 Pulse Oximetry 99 08/21/23 22:20 Oxygen Delivery Method Room Air 08/21/23 22:20 MDM - Abdominal Pain MDM Narrative Medical decision making narrative: This 73-year-old male with a history of pancreatic cancer who is currently undergoing chemotherapy and does get shots of Neupogen when he gets his chemotherapy presents for evaluation of upper abdominal pain. He was sent to the emergency department for chest pain from the [facility] where he is [facility]. He denies any chest pain or shortness of breath. He was recently transferred to [facility] after being found to have bilateral pulmonary embolisms with right heart strain. He had a thrombectomy at that time and has been placed on Eliquis. He is not having any nausea vomiting or diarrhea. He has not had a fever. He states he did have some diarrhea a couple days ago. An EKG done upon arrival was a sinus rhythm at 80 bpm with no acute changes. An IV was placed and he was medicated with a milligram of Dilaudid and IV fluids. He does have an allergy to contrast dye so he was premedicated with Solu-Medrol Pepcid and Benadryl. Routine labs are reviewed. He has an elevated white count at 18.4. Again he does receive Neupogen or other bone marrow activation medications with his chemotherapy. He is currently receiving chemotherapy while in the emergency department. His hemoglobin is stable at 10.4. Platelet count is normal at 159. Electrolytes are normal with the exception of a potassium of 3.1 and glucose of 203. He was given 40 mEq of potassium in the emergency department to replace this. He did have a mildly elevated lactic acid at 3.8. LFTs were mildly elevated with a total bilirubin of 1.3, AST of 103 and alk phos of 463. Troponin was normal. CT scan of the abdomen pelvis which is included in the body of this report does not show any sign of acute infection. It shows persistence of pulmonary emboli but less clot burden than previous and no heart strain. CT scan does show a pancreatic mass which the patient was aware of and a biliary stent. There is no ascites, bowel obstruction or other sign of infection. The results of the labs and CT scan were discussed with the patient and his sister. He feels comfortable being discharged home. He now feels like he was having a spasm in his abdomen. He states he has had spasms before and that is what it felt like. He will be returned to the extended care facility where he currently resides for continuation of his current therapy and close follow-up with oncology. Medical Records Medical records narrative: [place] [address] CT Scan Report Signed Patient: ANUSHA DANIELLE MR#: [id number] : 1950 Acct:[id number] Age/Sex: 73 / M ADM Date: 08/21/23 Loc: ER Attending Dr: Ordering Physician: Deepa Weir Date of Service: 08/21/23 Procedure(s): CT angio chest Accession Number(s): [id number] cc: JOSEFINA SMITH ~ [facility] [place] [address] Patient Name: ANUSHA DANIELLE MRN: [id number] date: 1950 Sex: M Assigned Patient Location: ER Current Patient Location: ER Accession/Order Number: [id number] Exam Date: 08/21/2023 21:20 Report Date: 08/21/2023 22:45 At the request of: DEEPA WEIR Procedure: CT angio chest PROCEDURE: CT angio chest, CT angio abdomen pelvis CLINICAL INDICATION: 73 years Male Upper abd pain, hx PE and pancreatic ca COMPARISONS: Chest CT angiogram dated 07/28/2023. TECHNIQUE: CT angiogram of the chest, abdomen and pelvis was performed following intravenous administration of 100 mL of Omnipaque 350. Additional volume rendered images were also obtained. Coronal and sagittal reformations were created. Individualized dose optimization technique was used for the procedure performed. FINDINGS: Chest There has been some decrease in the burden of bilateral pulmonary emboli compared to the previous exam. There is no evidence of right heart strain. There is no aortic aneurysm or dissection. Visualized thyroid gland appears unremarkable. Trachea and mainstem bronchi are patent. There is no hilar, mediastinal or axillary adenopathy. Mild biapical scarring is again noted. A few noncalcified lung nodules and small hazy opacities within both lungs are also again seen. There is no pleural or pericardial effusion. There are mild multilevel arthritic changes of the thoracic spine. Abdomen and pelvis There are multiple low-attenuation liver lesions measuring up to 2.3 cm within inferior right hepatic lobe. Biliary stent and pneumobilia are also identified. Pancreas is markedly atrophic. There is a 2.9 x 2.5 cm pancreatic head mass. There is mild nodular thickening of the right adrenal gland. Gallbladder is surgically absent. Spleen, left adrenal gland and kidneys are normal. Bowel loops are normal in course and caliber, there is no obstruction or free air. Appendix is normal. There is no ascites or adenopathy. There is severe aortoiliac atherosclerotic disease. Lumbar spine and pelvic bones appear unremarkable. CT/CT angio chest IMPRESSION: 1. Some decrease in burden of bilateral pulmonary emboli. No evidence of right heart strain. 2. Stable small hazy opacities within both lungs concerning for pulmonary infarcts. 3. No acute abnormality within the upper abdomen and pelvis. 4. Pancreatic head mass with hepatic metastases as detailed above. Electronically authenticated by: NANCY COLEMAN Date: 08/21/2023 22:45 Lab Data Labs: Lab Results 08/21/23 08/21/23 Range/Units 19:50 20:02 WBC 18.4 H (4.0-11.0) 10^3/uL RBC 3.69 L (4.70-6.10) 10^6/uL Hgb 10.4 L (14.0-18.0) g/dL Hct 34.0 L (42.0-54.0) % MCV 92.1 (80.0-94.0) fL MCH 28.2 (25.9-34.0) pg MCHC 30.6 (29.9-35.2) g/dL RDW 18.7 H (11.0-15.0) % Plt Count 159 (150-450) 10^3/uL MPV 9.9 (9.5-13.5) fL Seg Neuts % (Manual) 86.0 Band Neutrophils % 3.0 (0-5) % Lymphocytes % (Manual) 6.0 L (20.5-60.0) % Monocytes % (Manual) 5.0 (1.7-12.0) % Eosinophils % (Manual) 0.0 L (0.9-7.0) % Basophils % (Manual) 0.0 L (0.2-2.0) % Neutrophils # (Manual) 15.82 H (1.4-6.5) 10^3/uL Band Neutrophils # 0.6 H (0.0-0.3) 10^3/uL Lymphocytes # (Manual) 1.10 L (1.20-3.80) 10^3/uL Monocytes # (Manual) 0.92 H (0.30-0.80) 10^3/uL Eosinophils # (Manual) 0.00 (0.00-0.70) 10^3/uL Basophils # (Manual) 0.00 (0.00-0.10) 10^3/uL PT 11.2 (9.0-11.6) sec INR 1.06 Sodium 140 (136-145) mmol/L Potassium 3.1 L (3.5-5.1) mmol/L Chloride 99 (98-107) mmol/L Carbon Dioxide 32.1 H (21.0-32.0) mmol/L Anion Gap 12.0 BUN 12.0 (7.0-18.0) mg/dL Creatinine 1.27 (0.70-1.30) mg/dL Est GFR ( Amer) >60 (>=60) Est GFR (Non-Af Amer) 56 L (>=60) BUN/Creatinine Ratio 9.4 Glucose 203 H (74-106) mg/dL Lactate 3.8 H* (0.4-2.0) mmol/L Calcium 8.4 L (8.5-10.1) mg/dL Total Bilirubin 1.3 H (0.2-1.0) mg/dL AST 103 H (15-37) U/L ALT 49 (16-63) U/L Alkaline Phosphatase 463 H (46-116) U/L Troponin I High Sens 12.6 (4.0-76.1) pg/mL NT-Pro-B Natriuret Pep 335.0 (<=900.0) pg/mL Total Protein 6.7 (6.4-8.2) g/dL Albumin 2.3 L (3.4-5.0) g/dL Globulin 4.4 g/dL Albumin/Globulin Ratio 0.5 Lipase 11.0 L (16.0-77.0) U/L Blood Type O Positive Antibody Screen Negative ECG Data Attestation: I personally reviewed and interpreted this ECG as follows: (Sinus rhythm with sinus arrhythmia at 80 bpm, normal axis, normal intervals, no acute ST segment elevation or T wave inversion) Discharge Plan Discharge Stand Alone Forms: Portal Instructions Chief Complaint: Abdominal Pain Clinical Impression: Pancreatic cancer, Abdominal pain, Hypokalemia Patient Disposition: Home, Self-Care Time of Disposition Decision: 23:19 Condition: Good Prescriptions / Home Meds: No Action fluvoxamine 100 mg tablet 100 mg PO BEDTIME glipizide 10 mg tablet 10 mg PO DAILY methylphenidate HCl 10 mg tablet 10 mg PO BID trazodone 100 mg tablet 100 mg PO BEDTIME insulin glargine [Lantus Solostar U-100 Insulin] 100 unit/mL (3 mL) insulin pen 28 unit subcut DAILY atorvastatin 40 mg tablet 40 mg PO QPM hydromorphone [Dilaudid] 2 mg tablet 2 mg PO Q8H insulin glargine [Lantus U-100 Insulin] 100 unit/mL solution 10 unit subcut QDAY furosemide 20 mg tablet 20 mg PO DAILY GI COCKTAIL liquid 60 ml PO TID morphine 15 mg tablet extended release 15 mg PO Q12H insulin aspart U-100 [Novolog FlexPen U-100 Insulin] 100 unit/mL (3 mL) insulin pen 1 sliding scale dose subcut USEASDIRECTD ondansetron 4 mg tablet,disintegrating 4 mg PO Q6H PRN (Reason: nausea and vomiting) pantoprazole [Protonix] [address] for susp in packet 40 mg PO QDAY sennosides [Olga-lobo] 8.6 mg tablet 8.6 mg PO BID Print Language: Moroccan Instructions: Hypokalemia (ED), Pancreatic Cancer (DC), Acute Abdominal Pain (DC) Referrals: SHELLY BENTLEY [Physician] - 1 week
[2023-08-21] MEDS: DIPHENHYDRAMINE HCL 50 MG/ML VIAL 25 MG IV (20:03)
[2023-08-21] MEDS: 0.9 % SODIUM CHLORIDE 1,000 ML 125 ML IV (20:03)
[2023-08-21 20:04] LABS: Hemoglobin 10.4 g/dL (14.0-18.0); Mean Corpuscular HGB Conc 30.6 g/dL (29.9-35.2); Mean Corpuscular Hemoglobin 28.2 pg (25.9-34.0); Mean Corpuscular Volume 92.1 fL (80.0-94.0); Mean Platelet Volume 9.9 fL (9.5-13.5); Platelet Count 159 10^3/uL (150-450); Red Blood Count 3.69 10^6/uL (4.70-6.10); Red Cell Distribution Width 18.7 % (11.0-15.0); White Blood Count 18.4 10^3/uL (4.0-11.0)
[2023-08-21] MEDS: METHYLPREDNISOLONE SOD SUCC PF 125 MG/2 ML VIAL IVP (20:06)
[2023-08-21 20:15] LABS: INR 1.06; Prothrombin Time 11.2 sec (9.0-11.6)
[2023-08-21] MEDS: FAMOTIDINE/PF 20 MG/2 ML VIAL IV (20:16)
[2023-08-21 20:21] LABS: Band Neutrophils Absolute 0.6 10^3/uL (0.0-0.3); Segmented Neut Absolute Manual 15.82 10^3/uL (1.4-6.5)
[2023-08-21 20:22] LABS: Monocytes Absolute Manual 0.92 10^3/uL (0.30-0.80)
[2023-08-21 20:24] LABS: Alanine Aminotransferase 49 U/L (16-63); Albumin Globulin Ratio 0.5; Albumin Level 2.3 g/dL (3.4-5.0); Alkaline Phosphatase 463 U/L (46-116); Aspartate Amino Transferase 103 U/L (15-37); BUN Creatinine Ratio 9.4; Bilirubin Total 1.3 mg/dL (0.2-1.0); Calcium 8.4 mg/dL (8.5-10.1); Carbon Dioxide 32.1 mmol/L (21.0-32.0); Chloride 99 mmol/L (98-107); Estimated GFR (African America >60 (>=60); Estimated GFR (Non-African Ame 56 (>=60); Globulin 4.4 g/dL; Glucose 203 mg/dL (74-106); Potassium 3.1 mmol/L (3.5-5.1); Sodium 140 mmol/L (136-145); Total Protein 6.7 g/dL (6.4-8.2); Troponin I High Sensitivity 12.6 pg/mL (4.0-76.1)
[2023-08-21 20:27] LABS: Lactate/Lactic Acid 3.8 mmol/L (0.4-2.0)
[2023-08-21] MEDS: 0.9 % SODIUM CHLORIDE 500 ML IV (20:55)
[2023-08-21] MEDS: POTASSIUM CHLORIDE 10 MEQ ER TABLET 40 MEQ PO (22:02)
[2023-08-21 22:20] VITALS: BP 95/52; PULSE 77; O2SAT 99
--- NOTE | 2023-08-21 22:32 | PC.NURSE ---
Patient arrives via EMS from the [facility] after having chest pains. When he arrives here, he explains that his pain is more abdominal than chest, and the pain is a 3/10 unless he takes a deep breath, then the pain increases. He had chemo today, and his port is still accessed with his chemo still being infused through a portable, continuous pump. He says the pain started after he returned to the [facility] from the cancer center. This is new, he does not usually have this pain upon returning from the cancer center. He is being treated for pancreatic cancer. He says he had diarrhea for 3-4 days prior to today
[2023-08-21 23:29] LABS: Lactate/Lactic Acid 2.3 mmol/L (0.4-2.0)
== END 2023-08-21 23:39 | disposition home or self-care (01) ==
PROVIDERS: Emergency Provider Emergency Medicine; Family Provider Family Medicine; PCP Family Medicine
DX: R10.9 Unspecified abdominal pain (principal); E87.6 Hypokalemia; C25.9 Malignant neoplasm of pancreas, unspecified; Z79.899 Other long term (current) drug therapy; Z86.711 Personal history of pulmonary embolism; Z79.01 Long term (current) use of anticoagulants
CPT/HCPCS: 36415; 71275; 74174; 80053; 83605; 83690; 83880; 84484; 85007; 85027; 85610; 86850; 86900; 86901; 96374; 96375; 99285; J2919; Q9967